=== PATIENT | female | born 2000 | race Caucasian/White ===

== ENCOUNTER 2025-02-07 15:04 | Outpatient (CLI) | payer OTHER, SELFPAY ==
--- NOTE | ~2025-02-07 | MR_ITS ---
MRI right knee without contrast Ordering provider: Evgeny Colon History: . Acute pain RT knee, evaluate patellofemoral defect . Comparison: None. FINDINGS: QUADRICEPS, PATELLAR TENDONS AND CRUCIATE LIGAMENTS: Postoperative changes in the anterior cruciate l igament is noted. Otherwise, Normal in signal and size. No tear. MENISCI: No definite meniscal tear. Possibility of a meniscus tear in the posterior horn of the medi al meniscus. Further evaluation and follow-up advised. COLLATERAL LIGAMENTS: Normal. PATELLA: Normal position without tilt or subluxation. The medial and lateral patellar retinacula and medial patellofemoral ligament are intact. JOINT SPACE/ARTICULAR CARTILAGE: Irregularity of the articular cartilage is seen in the mid portion superiorly with focal area of loss of cartilage.. Minimal joint effusion. Focal area of cartilage irr egularity is seen in the lateral tibial plateau cartilage and in the area of the lateral femoral cond yle.. BONES: Normal marrow signal. SUPERFICIAL AND DEEP SOFT TISSUE: No popliteal cyst. No bursitis. No muscle strain. Otherwise, rio l. IMPRESSION: Possible tear in the posterior horn of the medial meniscus. Irregularity of the cartilage over the patella with missing fragment in the mid upper patella. Irregu larity of the cartilage is also seen in the area of the lateral tibial plateau and lateral femoral ca rtilage suggestive of osteoarthritic changes.. Minimal joint effusion. Reviewed, dictated and finalized at location A. IMPRESSION: Possible tear in the posterior horn of the medial meniscus. Irregularity of the cartilage over the patella with missing fragment in the mid upper patella. Irregularity of the cartilage is also seen in the area of the l ateral tibial plateau and lateral femoral cartilage suggestive of osteoarthriti c changes.. Minimal joint effusion.
== END 2025-02-07 15:05 | disposition home or self-care (01) ==
LOC: GOSHIMG 15:06
DX: M25.561 Pain in right knee (principal); R93.6 Abnormal findings on diagnostic imaging of limbs
CPT/HCPCS: 73721